=== PATIENT | female | born 1980 | race Caucasian/White ===

== ENCOUNTER 2018-12-30 22:28 | Emergency (ER) | payer SELFPAY ==
[~2018-12-30] VITALS: Ht 172.7 cm; Wt 59.0 kg
== END 2018-12-30 22:50 | disposition left against medical advice (07) ==
LOC: ER 22:28
DX: Z76.0 Encounter for issue of repeat prescription (principal)

== ENCOUNTER 2019-02-11 19:36 | Emergency (ER) | payer SELFPAY | END 2019-02-11 21:21 | disposition left against medical advice (07) | LOC: ER 19:36 | DX: R69 Illness, unspecified (principal) ==

== ENCOUNTER 2019-10-09 15:01 | Emergency (ER) | payer MEDICARE ==
[~2019-10-09] VITALS: Ht 172.7 cm; Wt 59.0 kg
[2019-10-09 15:18] VITALS: BP 145/104
[2019-10-09] MEDS ORDERED: HYDROCHLOROTHIAZIDE 25 MG TAB PO ONE (15:30)
[2019-10-09] MEDS ORDERED: METRONIDAZOLE 500 MG TAB PO ONE (15:30)
== END 2019-10-09 15:26 | disposition home or self-care (01) ==
LOC: ER 15:01
DX: Z76.0 Encounter for issue of repeat prescription (principal); I10 Essential (primary) hypertension
CPT/HCPCS: 99282

== ENCOUNTER 2022-02-14 23:23 | Emergency (ER) | payer OTHER ==
[~2022-02-14] VITALS: Ht 172.7 cm; Wt 59.0 kg
[2022-02-14] MEDS ORDERED: SODIUM CHLORIDE 0.9% 250ML 250 ML IV ONE (23:45)
[2022-02-15 00:12] LABS: BASOPHILS # (AUTO) 0.1 (0.0-0.1); BASOPHILS % 1.4 % (0.0-1.0); EOSINOPHILS # (AUTO) 0.1 (0.0-0.4); EOSINOPHILS % 2.4 % (0.0-6.0); HEMOGLOBIN 7.2 g/dL (12.0-16.0); LYMPHOCYTES # (AUTO) 1.2 (1.0-3.2); LYMPHOCYTES % 23.4 % (18.0-39.1); MEAN CORPUSCULAR HEMOGLOBIN 17.7 pg (28-32); MEAN CORPUSCULAR HGB CONC 26.7 g/dL (31-35); MEAN CORPUSCULAR VOLUME 66.5 fL (81-99); MONOCYTES # (AUTO) 0.4 (0.2-0.8); NEUTROPHILS # (AUTO) 3.3 (2.1-6.9); NEUTROPHILS % 65.6 % (38.7-80.0); PLATELET COUNT 327 x10e3/uL (140-360); RED BLOOD COUNT 4.06 x10e6/uL (3.6-5.1); RED CELL DISTRIBUTION WIDTH 19.1 % (11.7-14.4)
[2022-02-15 00:27] LABS: ALBUMIN 4.8 g/dL (3.5-5.0); ANION GAP 16.1 mmol/L (8-16); CALCIUM 8.9 mg/dL (8.4-10.2); CREATININE, SERUM 1.3 mg/dL (0.57-1.11); POTASSIUM 4.1 mmol/L (3.5-5.1)
[2022-02-15] MEDS ORDERED: GLUCAGON FOR INJ 1 MG VIAL IV STA (00:47)
[2022-02-15] MEDS ORDERED: LEVOTHYROXINE50 MCG PO (01:43)
[2022-02-15] MEDS ORDERED: HYDROCHLOROTHIA25 MG PO (01:43)
[2022-02-15 01:48] VITALS: BP 135/90
== END 2022-02-15 01:45 | disposition home or self-care (01) ==
LOC: ER 23:43
DX: D64.9 Anemia, unspecified (principal); R53.1 Weakness; E16.2 Hypoglycemia, unspecified; I10 Essential (primary) hypertension; E03.9 Hypothyroidism, unspecified; F41.9 Anxiety disorder, unspecified; F17.210 Nicotine dependence, cigarettes, uncomplicated
CPT/HCPCS: 36415; 80053; 80320; 82948; 85025; 86850; 86900; 86920; 99283